=== PATIENT | female | born 1990 | race Caucasian/White ===

== ENCOUNTER 2019-01-19 17:59 | Emergency (ER) | payer OTHER, BC ==
[~2019-01-19] VITALS: Ht 157.5 cm; Wt 59.1 kg
[~2019-01-19 17:59] MED LIST: ALDACTONE 25MG25 M1 PO; AMOXICILLIN 50500 MG PO; BCP TD; Birth Control Pill; CEPHALEXIN500 M1 PO; DIFLUCAN150 MG PO; LOESTRIN 1/20 21DAY PO; NAPROSYN375 MG PO; PHENERGAN 25 TA25 MG PO; RETIN A 0.01% TP; TYLENOL #3 301 UDTAB PO; ZOFRAN 4MG T4 MG/TAB PO; ZOLOFT50 MG PO
[2019-01-19 18:04] VITALS: BP 161/92; TEMP 97.3
[2019-01-19] MEDS ORDERED: CELEXA40 MG PO (18:11)
[2019-01-19 20:08] VITALS: PULSE 73
== END 2019-01-19 20:08 | disposition home or self-care (01) ==
LOC: COL.ER 17:59
DX: S16.1XXA Strain of muscle, fascia and tendon at neck level, initial encounter (principal); S06.0X9A Concussion with loss of consciousness of unspecified duration, initial encounter; V43.52XA Car driver injured in collision with other type car in traffic accident, initial encounter

== ENCOUNTER → 2022-10-28 | Outpatient (CLI) | payer BC ==
[~2022-10-28] MED LIST changes: +CELEXA40 MG PO
== END ==
LOC: MHCPAIN 15:49
DX: M54.50 Low back pain, unspecified (principal); R10.2 Pelvic and perineal pain; N92.0 Excessive and frequent menstruation with regular cycle; M53.3 Sacrococcygeal disorders, not elsewhere classified
CPT/HCPCS: G0463

== ENCOUNTER 2023-04-09 11:24 | Outpatient (RCR) | payer OTHER ==
[~2023-04-09 11:24] MED LIST changes: +AMOXICILLIN 8751 TAB PO; +ATROVENT INHALE14 GM IH
== END 2023-04-16 ==
LOC: WSOH
DX: S53.402D Unspecified sprain of left elbow, subsequent encounter (principal); I10 Essential (primary) hypertension; Y99.0 Civilian activity done for income or pay